=== PATIENT | male | born 1960 | race Caucasian/White ===

== ENCOUNTER 2017-04-15 18:42 | Emergency (ER) | payer OTHER ==
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
[2017-04-15] MEDS ORDERED: MORPHINE SULFATE 2 MG/ML DISP.SYRIN IV ONE (20:02)
[2017-04-15] MEDS ORDERED: MORPHINE SULFATE 2 MG/ML DISP.SYRIN ONE (20:02)
--- OUTSIDE RECORDS SUMMARY | 2017-04-15 20:02 | XMS REPORT | Continuity of Care Document ---
:1960 Author Organization [facility] ([facility]) Address [place] [address] Phone [phone] Care Team Providers Name Role Phone Unavailable Primary Care Provider Unavailable Source Comments This disclosure is being made pursuant to the Care Everywhere program, applicable federal and state laws, and may not contain all informaitonavailable regarding this patient.[facility] ([facility]) Active Allergies and Adverse Reactions Not on File Current Medications Not on file Active Problems Not on file Social History Tobacco Use Types Packs/Day Years Used Date Never Assessed Plan of Care Health Maintenance Due Date Last Done Comments HCV Screening 1960 Hepatitis B Vaccine (1 of 3 - Primary Series) 1960 Tdap Vaccine 1970 Lipid Disorder Screening 1977 MMR Vaccine 1977 Td Vaccine 1977 Colonoscopy 04/28/2009 Prostate Cancer Screening 2009 Influenza Vaccine: Seasonal (#1) 06/13/2016 Results from Last 3 Months Not on file
[2017-04-15 22:10] VITALS: BP 122/67
== END 2017-04-15 21:55 | disposition home or self-care (01) ==
LOC: ER 18:42
PROC: 0RSXXZZ Reposition Left Finger Phalangeal Joint, External Approach (ICD-10-PCS; principal; 2017-04-15)
PROC: 0HQLXZZ Repair Left Lower Leg Skin, External Approach (ICD-10-PCS; 2017-04-15)
DX: S63.255A Unspecified dislocation of left ring finger, initial encounter (principal); S81.812A Laceration without foreign body, left lower leg, initial encounter; W13.2XXA Fall from, out of or through roof, initial encounter